=== PATIENT | female | born 1980 | race African-American/Black ===

== ENCOUNTER 2025-06-12 16:50 | Emergency (ER) | payer OTHER, SELFPAY ==
--- NOTE | ~2025-06-12 | XR_ITS ---
XR abdomen/kub 1V 06/12/2025 17:28 INDICATION: Abdomen bloating TECHNIQUE: KUB COMPARISON: None FINDINGS: Bowel gas pattern is normal. There is no evidence of free air, mass, organomegaly, ascites or obstruction. No abnormal calculi are seen. The bones appear intact. There are surgical clips in the pelvis. IMPRESSION: 1: No acute abdominal abnormality identified. Reviewed, dictated and finalized at location A.
--- NOTE | 2025-06-12 16:55 | ED.ABDPAIN ---
HPI - Abdominal Pain General Chief Complaint: Upper Respiratory Infection Stated Complaint: EPIGASTRIC PAIN/TIGHTNESS/SORE THROAT/NAUSEA Time Seen by Provider: 06/12/25 16:54 Source: patient Mode of arrival: ambulatory Limitations: no limitations History of Present Illness HPI narrative: Britany is a 44-year-old female patient presenting to the clinic today with complaints of epigastric pain with pain radiating into her back, abdomen tightness, abdomen bloating, sore throat, and nausea x3 days. Last BM today and normal for her. No vomiting. Rates pain 5/10 currently. Has taken ibuprofen, famotidine, and tylenol for pain/discomfort. States the famotidine did help it some of her symptoms. No fever, chills, or body aches. Related Data Home Medications ?Medication ?Instructions ?Recorded ?Confirmed ?Last Taken ?Type clindamycin phosphate 1 % topical 1 applic topical BID 06/12/25 06/12/25 Unknown History gel hydrochlorothiazide 12.5 mg tablet 12.5 mg PO DAILY 06/12/25 06/12/25 Unknown History metoprolol succinate 50 mg 50 mg PO DAILY 06/12/25 06/12/25 Unknown History tablet,extended release 24 hr metronidazole 500 mg tablet 500 mg PO Q12H 06/12/25 06/12/25 Unknown History sulfamethoxazole 800 1 tablet PO Q12H 06/12/25 06/12/25 Unknown History mg-trimethoprim 160 mg tablet Allergies Allergy/AdvReac Type Severity Reaction Status Date / Time No Known Allergies Allergy Verified 06/12/25 17:01 Review of Systems Review of Systems: Pertinent positives per HPI. Patient denies any fever, chills, rash, headache, visual changes, dizziness, cough, runny nose, shortness of breath, chest pain, palpitations, vomiting, diarrhea, constipation, or any urinary issues. PMFSH Comments At the time of my signature, I reviewed and agree with the nursing past medical, surgical, social, and family history. There is no relevant family history pertinent to the patient complaint. Exam Narrative: General: Well-developed, morbidly obese, in no apparent distress. Head: Normocephalic, atraumatic. Cardio: Regular rate and rhythm, s1 and s2 normal, no murmur appreciated. Resp: Clear to auscultation bilaterally, no rhonchi, rales, wheezing or rubs. Abdomen: Soft, pliable, bowel sounds present in all quadrants, epigastric tender to palpation, no organomegly, no CVAT tenderness. Course Course Emergency Course: Portions of this record may have been created with voice recognition software. Level of Care: Express Care Visit Vital Signs Vital signs: Vital signs reviewed MDM - Abdominal Pain MDM Narrative Medical decision making narrative: At the time of visit patient is resting comfortably on the exam table. Patient appears to be nontoxic. Complaints of epigastric pain with pain radiating into her back, abdomen tightness, abdomen bloating, sore throat, and nausea x3 days. Last BM today and normal for her. No vomiting. Rates pain 5/10 currently. Has taken ibuprofen, famotidine, and Tylenol for pain/discomfort. States the famotidine did help it some of her symptoms. No fever, chills, or body aches. EKG and abdominal x-ray was ordered. Lidocaine and Maalox was ordered EKG: EKG shows sinus rhythm with heart rate of 70 beats per minute with an incomplete right bundle branch block and a nonspecific T-wave abnormality. No ST elevation or depression noted. Diagnostics: KUB x-ray was ordered shows no acute abdomen pathology Medications: Lidocaine 15 mL p.o. and Maalox 30 mL p.o. given to the patient. Plan: Patient is having improvement with medications. EKG is reassuring and KUB is negative. Patient has GERD with epigastric pain. Prescription for Carafate and Protonix was sent to the pharmacy. Supportive measures were discussed with the patient and they voiced understanding discharge instructions and agrees to treatment plan. Return precautions reviewed Differential Diagnosis Differential diagnosis: Likely abdominal pain, constipation, diverticulitis, gastroenteritis, pancreatitis, small bowel obstruction and other (GERD, cholecystitis) Imaging Data Radiologist's impression: ITS Impressions Abdomen X-Ray 06/12/25 17:30 IMPRESSION: 1: No acute abdominal abnormality identified. ECG Data EKG #1: Attestation: I personally reviewed and interpreted this ECG as follows: ECG completion date: 06/12/25 ECG completion time: 17:23 Prior ECG tracings: not available for review Interpretation: EKG shows sinus rhythm with heart rate is 70 beats per minute without ST elevation or depression. Show a incomplete right bundle branch block with a nonspecific T-wave abnormality. PA intervals 176 milliseconds, QRS durations 100 milliseconds, QT-QTC is 401-422, P-R-T axis 39 -1 5 Discharge Plan Discharge Clinical Impression: GERD (gastroesophageal reflux disease), Acute epigastric pain Patient Disposition: Home Condition: Stable Instructions: Antibiotic Form, Diet for Stomach Ulcers and Gastritis (ED), GERD (Gastroesophageal Reflux Disease) (ED) Additional Instructions: EKG is reassuring in the clinic today Abdominal x-ray shows no acute abdomen abnormality Increase fluids and stay well hydrated Avoid eating spicy or fatty foods, chocolate, or drinking caffeine. Avoid foods that cause you to feel bloated. Stop smoking Lose weight/exercise Stay upright for at least 30 minutes after eating. May use tums for immediate relief Take medications only as prescribed-pantoprazole and sucralfate. Follow up with your PCP in 3-5 days if symptoms persist. Patient Language: Croatian Prescriptions: New pantoprazole 40 mg tablet,delayed release (DR/EC) 40 mg PO HS 28 Days Qty: 28 0RF sucralfate [Carafate] 1 gram tablet 1 g PO ACHS 30 Days Qty: 120 0RF No Action metoprolol succinate 50 mg tablet extended release 24 hr 50 mg PO DAILY hydrochlorothiazide 12.5 mg tablet 12.5 mg PO DAILY clindamycin phosphate 1 % gel 1 applic TOPICAL BID sulfamethoxazole-trimethoprim 800-160 mg tablet 1 tablet PO Q12H metronidazole 500 mg tablet 500 mg PO Q12H Follow-up/Referrals: UNKNOWN,DOCTOR [Non-Staff] Time of Disposition: 17:48 Quality NIHSS Nursing Documentation ED NIHSS nursing documentation: reviewed/agree
[2025-06-12 17:05] VITALS: BP 129/56; PULSE 73; RESP 16; TEMP 36.3; O2SAT 100
--- NOTE | 2025-06-12 17:10 | ECG_ITS ---
Test Date: 2025-06-12 17:23:12 Measurements Intervals [place] Rate: 70 P: 39 MT: 176 QRS: -1 QRSD: 100 T: 5 QT: 401 QTc: 434 Interpretive Statements SINUS RHYTHM LOW QRS VOLTAGE IN PRECORDIAL LEADS INCOMPLETE RIGHT BUNDLE BRANCH BLOCK MINIMAL Q WAVES- HIGH LATERAL LEADS BORDERLINE T WAVE ABNORMALITY- ANT/INF LEADS BASELINE ARTIFACT- I, II, III, AVR, AVL, AVF, V1 BORDERLINE ECG No previous ECG available for comparison Electronically Signed On 06-12-2025 19:06:33 CDT by Brenden Encarnacion D.O.
[2025-06-12] MEDS: LIDOCAINE 2% VISC SOLN 15 ML UDC PO (17:16)
[2025-06-12] MEDS: MAG HYDROX/AL HYDROX/SIMETH 30 ML UDC PO (17:16)
== END 2025-06-12 17:53 | disposition home or self-care (01) ==
PROVIDERS: Emergency Provider Nurse Practitioner Family; PCP Midwife
DX: K21.9 Gastro-esophageal reflux disease without esophagitis (principal); R10.13 Epigastric pain; I10 Essential (primary) hypertension; R73.03 Prediabetes
CPT/HCPCS: 74018; 93005; 99213; A9270; G0463